=== PATIENT | female | born 1950 | race Caucasian/White ===

== ENCOUNTER 2021-10-13 09:52 | Outpatient (CLI) | payer OTHER, SELFPAY ==
--- OUTSIDE RECORDS SUMMARY | 2021-09-28 09:07 | XMS_ITS | Continuity of Care Document ---
:1950 Author Allergies, Adverse Reactions, Alerts No known allergies Social History Smoking Status Unknown if ever smoked Additional Data Assigned Sex Female Medications No known medications Insurance Providers Guarantor Laureen Gore Address [address] [place] [id number] Contact Info. Home Phone: Payer Policy Id Coverage Id Subscriber's Subscriber Id Effective E xpiration Name Date Date Auto [id number] [id number] Luz Smith
== END 2021-10-13 09:53 | disposition home or self-care (01) ==
LOC: INJ CL 09:53
PROVIDERS: Visit Provider Family Medicine
DX: M54.16 Radiculopathy, lumbar region (principal); M51.36 Other intervertebral disc degeneration, lumbar region
CPT/HCPCS: 62323; J0702; Q9966

== ENCOUNTER 2021-12-29 10:27 | Outpatient (CLI) | payer OTHER, SELFPAY | END 2021-12-29 10:28 | disposition home or self-care (01) | PROVIDERS: Visit Provider Family Medicine | DX: M51.36 Other intervertebral disc degeneration, lumbar region (principal); M54.16 Radiculopathy, lumbar region | CPT/HCPCS: 62323; J0702; Q9966 ==